=== PATIENT | male | born 1995 | race American Indian/Alaskan Native ===

== ENCOUNTER 2017-06-30 16:56 | Emergency (ER) | payer OTHER ==
[~2017-06-30] VITALS: Ht 172.7 cm; Wt 129.3 kg
[~2017-06-30 16:56] MED LIST: AUGMENTIN 875-1 EACH PO; NORCO 5-325 TA1 EACH PO; PERCOCET 5-3251 EACH PO
[2017-06-30] MEDS ORDERED: BACLOFEN10 MG PO (18:05)
[2017-06-30] MEDS ORDERED: KETOROLAC TROME10 MG PO (18:05)
== END 2017-06-30 18:29 | disposition home or self-care (01) ==
LOC: ED 16:56
DX: S00.531A Contusion of lip, initial encounter (principal); I10 Essential (primary) hypertension; F17.200 Nicotine dependence, unspecified, uncomplicated; Y04.8XXA Assault by other bodily force, initial encounter
CPT/HCPCS: 99284

== ENCOUNTER 2017-11-15 23:32 | Emergency (ER) | payer OTHER ==
[~2017-11-15] VITALS: Ht 172.7 cm; Wt 129.3 kg
[~2017-11-15 23:32] MED LIST changes: +BACLOFEN10 MG PO; +KETOROLAC TROME10 MG PO
== END 2017-11-16 01:05 | disposition home or self-care (01) ==
LOC: ED 23:32
PROC: 0HQ0XZZ Repair Scalp Skin, External Approach (ICD-10-PCS; principal; 2017-11-15)
DX: S01.01XA Laceration without foreign body of scalp, initial encounter (principal); S16.1XXA Strain of muscle, fascia and tendon at neck level, initial encounter; I10 Essential (primary) hypertension; F17.200 Nicotine dependence, unspecified, uncomplicated; W17.89XA Other fall from one level to another, initial encounter
CPT/HCPCS: 12002; 70450; 72125; 80053; 82150; 82550; 83690; 85025; 86850; 86900; 86901; 99284; G0480

== ENCOUNTER 2018-07-22 23:18 | Emergency (ER) | payer OTHER ==
[~2018-07-22] VITALS: Ht 172.7 cm; Wt 129.3 kg
[2018-07-23] MEDS ORDERED: NORCO 5-325 TA1 EACH PO (02:39)
--- NOTE | 2018-07-23 13:23 | EKG ---
[facility] [address] [facility] [place] [address] Signed Sinus tachycardia T wave abnormality, consider inferior ischemia Abnormal ECG No previous ECGs available Confirmed by CARY PEREZ MD ([id number] on 07/23/2018 1:23:33 PM Electronically Signed By: CARY PEREZ MD 07/23/18 1323 PATIENT NAME: JUAN MIGUEL YEH JOHANN Electrocardiogram DATE OF : [birth year] PHYSICIAN: CARY PEREZ MD REPORT #: [id number] REPORT IS CONFIDENTIAL AND NOT TO BE RELEASED WITHOUT AUTHORIZATION
== END 2018-07-23 02:58 | disposition home or self-care (01) ==
LOC: ED 23:18
DX: K52.9 Noninfective gastroenteritis and colitis, unspecified (principal); J02.0 Streptococcal pharyngitis; I10 Essential (primary) hypertension; F17.200 Nicotine dependence, unspecified, uncomplicated; Z88.5 Allergy status to narcotic agent
CPT/HCPCS: 71045; 76705; 80053; 83690; 84484; 85025; 87880; 93005; 93010; 96361; 99285-25; G0480; J0561; J1170; J2405; J7030

== ENCOUNTER 2018-07-25 06:38 | Emergency (ER) | payer OTHER ==
[~2018-07-25] VITALS: Ht 172.7 cm; Wt 129.3 kg
--- OUTSIDE RECORDS SUMMARY | 2018-07-25 07:51 | XMS ---
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 Elias has no Care Guidelines for this patient. [place] VISIT COUNT (12 MO.) [address] [facility] TOTAL 3 NOTE: Visits indicate total known visits. ED/C VISIT TRACKING (12 MO.) 07/25/2018 06:38 [facility] [place] TYPE: Emergency COMPLAINT: - MULTIPLE COMPLAINTS 07/22/2018 23:18 [facility] [place] TYPE: Emergency COMPLAINT: - CHEST PAIN,VOMITING DIAGNOSES: - Chest pain, unspecified - Nicotine dependence, unspecified, uncomplicated - Streptococcal pharyngitis - Essential (primary) hypertension - Noninfective gastroenteritis and colitis, unspecified - Allergy status to narcotic agent status 11/15/2017 23:33 [facility] [place] TYPE: Emergency COMPLAINT: - ETOH INTOXICATION DIAGNOSES: - Nicotine dependence, unspecified, uncomplicated - Strain of muscle, fascia and tendon at neck level, initial encounter - Cervicalgia - Laceration without foreign body of scalp, initial encounter - Other fall from one level to another, initial encounter - Essential (primary) hypertension INPATIENT VISIT TRACKING (12 MO.) No inpatient visits to display in this time frame [id number]
--- NOTE | 2018-07-25 18:38 | EKG ---
[facility] [address] [facility] [place] [address] Signed Normal sinus rhythm Normal ECG When compared with ECG of 22-JUL-2018 23:25, ST no longer depressed in Lateral leads Nonspecific T wave abnormality no longer evident in Lateral leads Confirmed by DMITRY RAE MD ([id number]) on 07/25/2018 6:38:06 PM Electronically Signed By: DMITRY RAE MD 07/25/18 1838 PATIENT NAME: JUAN MIGUEL YEH OPHELIA Electrocardiogram DATE OF : [birth year] PHYSICIAN: DMITRY RAE MD REPORT #: [id number] REPORT IS CONFIDENTIAL AND NOT TO BE RELEASED WITHOUT AUTHORIZATION
== END 2018-07-25 10:22 | disposition home or self-care (01) ==
LOC: ED 06:38
DX: K21.0 Gastro-esophageal reflux disease with esophagitis (principal); I10 Essential (primary) hypertension; F17.200 Nicotine dependence, unspecified, uncomplicated; Z88.5 Allergy status to narcotic agent; Z79.899 Other long term (current) drug therapy
CPT/HCPCS: 80053; 81001; 83690; 84484; 85025; 93005; 93010; 96361; 96374; 96375; 99284-25; C9113; G0480; J1885; J2405; J7120

== ENCOUNTER 2021-09-05 18:44 | Emergency (ER) | payer OTHER ==
[~2021-09-05] VITALS: Ht 172.7 cm; Wt 122.5 kg
[~2021-09-05 18:44] MED LIST changes: +ONDANSETRON ODT8 MG PO
== END 2021-09-05 20:50 | disposition home or self-care (01) ==
LOC: ED 18:44
DX: S09.90XA Unspecified injury of head, initial encounter (principal); F10.129 Alcohol abuse with intoxication, unspecified; W18.30XA Fall on same level, unspecified, initial encounter; I10 Essential (primary) hypertension; F17.200 Nicotine dependence, unspecified, uncomplicated; Z88.5 Allergy status to narcotic agent; Z79.899 Other long term (current) drug therapy
CPT/HCPCS: 36415; 70450; 72125; 80053; 85025; 96374; 99284-25; G0480; J1885; J7121

== ENCOUNTER 2023-06-17 02:38 | Emergency (ER) | payer OTHER ==
[~2023-06-17] VITALS: Ht 172.7 cm; Wt 122.5 kg
[~2023-06-17 02:38] MED LIST changes: +CEPHALEXIN500 M1 PO; +DOXYCYCLINE HY100 MG PO
[2023-06-17 03:11] LABS: BASOPHILS 0.8 % (0-2); EOSINOPHILS 0.3 % (0-6); HEMATOCRIT 36.5 % (35.0-50.0); HEMOGLOBIN 12.2 g/dL (12.0-18.0); LYMPHOCYTES 15.1 % (24-44); MCH 27.6 (27-36); MCHC 33.3 g/dl (30-36); MCV 82.9 fl (81-99); MONOCYTES 10.3 % (0-12); NEUTROPHILS 73.5 % (39-80); PLATELET COUNT 258 K/uL (140-440); RDW 13.8 (10.5-15.0)
[2023-06-17 03:30] LABS: ANION GAP 14.1 (7-21); BUN/CREATININE RATIO 13.04 (6.0-28.6); CALCIUM 8.5 mg/dL (8.5-10.1); CREATININE, SERUM 0.69 mg/dL (0.70-1.30); POTASSIUM 4.1 mmol/L (3.5-5.1)
[2023-06-17 03:47] LABS: BILIRUBIN, URINE NEGATIVE (negative); BLOOD/HGB, URINE NEGATIVE (Negative); KETONE, URINE NEGATIVE (Negative); LEUK ESTERASE, URINE NEGATIVE (negative); NITRITE, URINE NEGATIVE (negative); PH, URINE 6.5 (5-7)
[2023-06-17 04:03] LABS: AMPHETAMINES, URINE POSITIVE (NEGATIVE); BARBITURATES, URINE NEGATIVE (NEGATIVE); BENZODIAZEPINE, URINE NEGATIVE (NEGATIVE); BUPRENORPHINE, URINE NEGATIVE (NEGATIVE); CANNABINOID, URINE NEGATIVE (NEGATIVE); COCAINE, URINE NEGATIVE (NEGATIVE); ECSTASY, URINE POSITIVE (NEGATIVE); FENTANYL, URINE POSITIVE (NEGATIVE); METHADONE, URINE NEGATIVE (NEGATIVE); OPIATES, URINE POSITIVE (NEGATIVE); OXYCODONE, URINE NEGATIVE (NEGATIVE); PHENCYCLIDINE, URINE NEGATIVE (NEGATIVE)
[2023-06-17] MEDS ORDERED: HYDROCODON-ACE1 EA10 PO (04:12)
[2023-06-17] MEDS ORDERED: LASIX20 MG PO (04:12)
[2023-06-17 04:34] VITALS: BP 150/84
== END 2023-06-17 04:40 | disposition home or self-care (01) ==
LOC: ED 02:38
PROVIDERS: Family Medicine
DX: R60.0 Localized edema (principal); I10 Essential (primary) hypertension; F17.200 Nicotine dependence, unspecified, uncomplicated
CPT/HCPCS: 36415; 80048; 80307; 81003; 83880; 85025; 96374; 96375; 99283-25; A9270; J1940; J2270

== ENCOUNTER 2025-04-06 01:48 | Emergency (ER) | payer OTHER ==
[~2025-04-06] VITALS: Ht 172.7 cm; Wt 99.0 kg
--- OUTSIDE RECORDS SUMMARY | ~2025-04-06 | XMS | Continuity of Care Document ---
Demographics + + + | Address | [address] | | | [place] [address] | + + + | Preferred Language | Unknown | + + + | Marital Status | Never | + + + | Denominational Affiliation | Unknown | + + + | Race | or | + + + | Ethnic Group | Not or | + + + Author + + + | Author | [facility] | + + + | Organization | [facility] | + + + | Address | [address] | | | [place] [address] | + + + | Phone | | + + + Care Team Providers + + + + | Care Marine Services Technician Name | Role | Phone | + + + + Unavailable | Unavailable | + + + + Allergies No information. Encounters No information. Functional Status No information. Immunizations No information. Medications No information. Problems No information. Procedures No information. Results/Labs No information. Social History +--------+ + + | date | description | facility | +--------+ + + Vital Signs + + + +---------+ | date | measurement | value | units | + + + +---------+ | 2025-02-12 00:00 | BMI | 31.8 | kg/m2 | + + + +---------+ | 2025-02-12 00:00 | BP_diastolic | 00 | mmHg | + + + +---------+ | 2025-02-12 00:00 | BP_systolic | 00 | mmHg | + + + +---------+ | 2025-02-12 00:00 | heart_rate | 00 | /min | + + + +---------+ | 2025-02-12 00:00 | height_metric | 172.72 | cm | + + + +---------+ | 2025-02-12 00:00 | height_standard | 68 | in | + + + +---------+ | 2025-02-12 00:00 | o2_saturation | 00 | % | + + + +---------+ | 2025-02-12 00:00 | respiration_rate | 00 | /min | + + + +---------+ | 2025-02-12 00:00 | | 98.6 | F | | | temperature_standar | | | | | d | | | + + + +---------+ | 2025-02-12 00:00 | weight_metric | 94.801 | kg | + + + +---------+ | 2025-02-12 00:00 | weight_standard | 209.000 | lb | + + + +---------+"
[~2025-04-06 01:48] MED LIST changes: +BACTRIM DS TAB1 EACH PO; +FUROSEMIDE20 MG PO; +HYDROCODON-ACE1 EA10 PO; +LASIX20 MG PO; +TRAZODONE HCL100 MG PO
[2025-04-06] MEDS ORDERED: CEPHALEXIN MONOHYDRATE 500 MG HOME.PACK PO ONE (02:15)
[2025-04-06 02:27] LABS: BASOPHILS 0.7 % (0.2-1.2); EOSINOPHILS 1.3 % (0.8-7.0); LYMPHOCYTES 26.0 % (21.8-53.1); MCH 28.3 PG (25.7-32.2); MCHC 33.0 g/dL (32.3-36.5); MCV 85.5 fL (79.0-92.2); MONOCYTES 7.6 % (5.3-12.2); NEUTROPHILS 64.3 % (34.0-67.9); RBC 4.07 M/uL (4.63-6.08)
[2025-04-06 02:41] LABS: ALT (SGPT) 62.0 U/L (14-59); AST (SGOT) 35.0 U/L (15-37); GLOMERULAR FILTRATION RATE,EST 134.0 mL/min (>60); PROTEIN, TOTAL 8.2 g/dL (6.4-8.2); UREA NITROGEN 13.0 mg/dL (7-18)
[2025-04-06] MEDS ORDERED: CEPHALEXIN500 M1 PO (03:11)
[2025-04-06 03:16] VITALS: BP 144/85
== END 2025-04-06 03:16 | disposition home or self-care (01) ==
LOC: ED 01:48
PROVIDERS: Internal Medicine
DX: L03.115 Cellulitis of right lower limb (principal); I10 Essential (primary) hypertension; F17.200 Nicotine dependence, unspecified, uncomplicated; Z79.899 Other long term (current) drug therapy
CPT/HCPCS: 36415; 80053; 83735; 83880; 85025; 85379; 99283; A9270